=== PATIENT | female | born 1945 | race Caucasian/White ===

== ENCOUNTER 2016-09-07 11:08 | Inpatient (IN) | payer OTHER ==
[2016-09-07] MEDS ORDERED: ASPIRIN 81 MG (BABY) CHEWABLE TABLET PO ONE (11:28)
[2016-09-07] MEDS ORDERED: NORMAL SALINE 10 ML SYRINGE FLUSH IVP PRN (11:28)
[2016-09-07] MEDS ORDERED: Sodium Chloride 0.9% 1,000 ML PRIMARY IV ONE (11:28)
[2016-09-07] MEDS ORDERED: IPRATROPIUM/ALBUTEROL SULFATE 3 ML NEB NEB ONE (11:30)
--- NOTE | 2016-09-07 11:31 | EKG ---
[address] [place] [address] [place] [address] Measurements Intervals [place] Rate: 85 P: ND: 0 QRS: -31 QRSD: 106 T: 69 QT: 383 QTc: 425 Interpretive Statements SINUS RHYTHM WITH OCCASSIONAL PACs] VOLTAGE CRITERIA FOR LVH NONSPECIFIC ST & T-WAVE ABNORMALITY Compared to ECG 07/08/2016 11:52:09 Left ventricular hypertrophy now present T-wave abnormality now present Poor R-wave progression still present Electronically Signed On 09-07-16 15:53:35 MST by Rogelio Bro [email or web address]
[2016-09-07] MEDS: NITROGLYCERIN 0.4 MG SL TAB (BOTTLE OF 3) SL PRN ×3 (11:36→11:53)
[2016-09-07 11:49] LABS: BASOPHILS # (AUTO) 0.02 10*3/UL; BASOPHILS % (AUTO) 0.2 % (0-1); EOSINOPHILS % (AUTO) 0.7 % (0-8); HEMATOCRIT 41.6 % (37.0-47.0); HEMOGLOBIN 13.1 g/dL (12.0-16.0); IMM GRAN % (AUTO) 0.6 % (0-5); IMM GRAN# (AUTO) 0.06 10*3/UL; LYMPHOCYTES # (AUTO) 1.17 10*3/uL; LYMPHOCYTES % (AUTO) 12.3 % (10-50); MEAN CORPUSCULAR HEMOGLOBIN 26.7 PG (27-31); MEAN CORPUSCULAR HGB CONC 31.5 g/dL (33-37); MEAN PLATELET VOLUME 9.1 FL (7.4-12.2); MONOCYTES # (AUTO) 0.67 10*3/UL (0.3-0.8); NEUTROPHILS # (AUTO) 7.56 10*3/UL; NEUTROPHILS % (AUTO) 79.2 % (50-80); RDW COEFFICIENT OF VARIATION 17.7 % (11.5-14.5); WHITE BLOOD COUNT 9.55 10^3/uL (4.8-10.8)
[2016-09-07 11:54] LABS: PLATELET MORPHOLOGY COMMENT NORMAL MORPHOLOGY (NORM)
[2016-09-07 12:06] LABS: BILIRUBIN,TOTAL 0.7 mg/dL (0.3-1.2); BUN/CREATININE RATIO 15.38 (6-20); CALCIUM 9.7 mg/dL (8.7-10.7); CREATININE 1.3 mg/dL (0.50-1.20); POTASSIUM 3.2 meq/L (3.8-5.2); TOTAL PROTEIN 7.5 g/dL (6.1-8.0)
[2016-09-07 12:17] LABS: CREATINE KINASE MB 0.47 NG/DL (0.00-5.00)
[2016-09-07 12:21] LABS: TROPONIN I 0.018 ng/mL (< 0.040)
--- NOTE | 2016-09-07 12:59 | DI ---
HISTORY: Cough for 3 days. Nonradiating substernal chest pain since this morning. History of bronc hitis, pneumonia and right-sided heart failure. COMPARISON: 07/08/2016. FINDINGS: Mild cardiomegaly is noted with atheromatous changes of the dorsal aorta. Compared to the previous examination of 07/08/2016, there is pulmonary vascular congestion in both mid and lower claribel g davis with early interstitial infiltrates in both lung bases suggestive of early congestive heart failure. The remainder of the lung davis are essentially clear. IMPRESSION: 1. Mild cardiomegaly is noted with atheromatous changes of the dorsal aorta. 2. Evidence of pulmonary vascular congestion in both mid and lower lung davis with early interstitia l infiltrates in both lung bases suggestive of early congestive heart failure. Clinical correlation is requested.
[2016-09-07] MEDS ORDERED: ACETAMINOPHEN WITH CODEINE 300 MG/30 MG TABLET PO PRN (13:54)
[2016-09-07] MEDS ORDERED: CYANOCOBALAMIN 1000 MCG/1 ML VIAL SUBCUT SCH (13:54)
[2016-09-07] MEDS ORDERED: CYCLOBENZAPRINE 10 MG TABLET PO PRN (13:54)
[2016-09-07] MEDS ORDERED: ALBUTEROL SULFATE 2.5 MG/3 ML NEB PRN (13:54)
[2016-09-07] MEDS: IPRATROPIUM/ALBUTEROL SULFATE 3 ML NEB NEB SCH ×2 (14:39→18:52)
[2016-09-07] MEDS: methylPREDNISolone 125 MG/2 ML VIAL IVP SCH ×2 (14:42→21:27)
--- NOTE | 2016-09-07 16:22 | PDOC ---
Chest Pain HPI - General Chief Complaint: Respiratory Complaint Stated Complaint: shortness of breath; chest pain Date Seen by Provider: 09/07/16 Time Seen by Provider: 11:18 Source: Patient Exam Limitations: POSITIVE: No limitations Treatment Prior to Arrival: REPORTS: Oxygen Nurse's Notes Reviewed & Considered: Yes - History of Present Illness Initial Comments: The patient is a 70 year old female. She states that around 7 AM, shortly after getting out of bed, she developed subxiphoid chest pain, exacerbated by deep inspiration. She also complained of increased shortness of breath and cough for the past 3 days. No known fevers. Patient states she has a history of "restrictive lung disease"and is on oxygen continuously, 2 L/m when sedentary and 4 liters per minute with walking or with activity. She also states she has a history of congestive heart failure. No known previous history of myocardial infarction. Body Location Affected: REPORTS: Chest Timing: REPORTS: Constant Duration: 4-6 hours (Chest pain as above) Severity: Moderate Persistent/Worse since (date): 09/07/16 Persistent/Worse since (time): 07:00 Context: REPORTS: Activity Quality: REPORTS: Sharpness, Other (Pleuritic) Radiation: REPORTS: None Associated Symptoms: REPORTS: Hurts to Breathe, Productive Cough (sputum) ( Mucoid) Modifying Factors: improves with: None Reported Similar Symptoms Previously: No Recently seen/treated/hospitalized: No Any Prior Injuries Related to Current Complaint?: No - Patient Home Medications Home Medications: Home Medications Aspirin [Aspirin EC] 81 mg PO DAILY #100 tab 09/17/13 Cholecalciferol (Vitamin D3) [Vitamin D3] 1 tab PO QD tab 04/21/15 Docusate Sodium [Stool Softener] 1 cap PO DAILY cap 04/21/15 Psyllium Husk [Fiber] 1 cap PO QD cap 04/21/15 JPM-Cyanocobalamin [JPM - Vitamin B-12] 1,000 mcg SUBCUT 2 x wk ml 10/06/15 Folic Acid 1 tab PO DAILY tab 02/07/16 Albuterol Sulfate [Proair Hfa] 1 - 2 puff INH Q4-6H PRN #1 puff 02/16/16 Cyclobenzaprine HCl 10 mg PO TID PRN 04/19/16 Fluticasone/Salmeterol [Advair 250-50 Diskus] Sample #2 05/01/16 Oxygen (O2) 1 l NASAL DAILY #2 unit 05/17/16 Fluoxetine HCl [Prozac] 1 cap PO DAILY #30 cap 07/03/16 Clotrimazole/Betamethasone Dip [Clotrimazole-Betamethasone Crm] 1 applic TOPICAL BID #45 gm 07/10/16 Lorazepam [Ativan] 0.5 mg PO BID PRN #20 tab 07/13/16 Nystatin Powder [Mycostatin Powder] 15 applic TOPICAL BID #1 bottle 07/13/16 Esomeprazole Magnesium [Nexium 24hr] 1 cap PO BID cap 07/23/16 Furosemide [Lasix] 2 tab PO BID #120 tab 07/23/16 Lift Chair unit MC QD #1 07/23/16 Tramadol HCl 1 tab PO Q4-6H tab 07/23/16 Diltiazem HCl [Diltiazem 24hr Er] 180 mg PO DAILY #30 cap 08/10/16 Potassium Chloride 1 cap PO BID #60 cap 08/10/16 Acetaminophen with Codeine [Tylenol With Codeine #3 Tablet] 1 tab PO Q4-6H #90 tab 08/30/16 Nitrofurantoin Monohyd/M-Cryst [Macrobid 100 Mg Capsule] 100 mg PO DAILY #30 cap 08/30/16 - Patient Allergies Allergies/Adverse Reactions: Allergies Allergy/AdvReac Type Severity Reaction Status Date / Time Sulfa (Sulfonamide Allergy Mild VOMITING Verified 09/07/16 14:19 Antibiotics) ciprofloxacin HCl AdvReac Intermediate NOT Verified 09/07/16 14:19 [From Cipro] APPLICABLE Past Medical History - heen HEENT History: Cataracts, Hard of Hearing Cardiovascular History: Previous SD Respiratory History: Home Oxygen Use, Other (please comment) Additional Respiratory History: HAD PERTUSSIS ONE YEAR AGO, DIRECTIONAL BORE OPERATOR TOLD HER SHE HAD RESTRICTIVE LUNG DISEASE Gastrointestinal History: GERD Genitourinary History: Recurrent UTI Additional Genitourinary History: TAKES MACROBID DAILY FOR PREVENTION Endocrine History: Denies History Musculoskeletal History: Rheumatoid Arthritis, Fibromyalgia, Back Pain, Joint Pain, Osteoarthritis Prosthesis or Implant: No Neurological History: Denies History Blood Disorders: Denies History Psychiatric History: Depression History of Sexually Transmitted Diseases: No Cancer History: Denies History In Past Year Been Physically Harmed or Verbally Threatened: No History of MDRO: No History of Other Communicable Diseases: No Tobacco Use: Never Smoker Alcohol Use: Occasionally Substance Use Type: None Previous Surgical History: Yes Type / Date of Surgery: TONSILECTOMY, CHOLECYSTECTOMY, TOTAL HYST, GERD, REBECCA ROTATOR CUFF, APPY Anesthesia Reactions: No Significant Family History: No pertinent family hx Past Medical History Reviewed: Reviewed - No Changes ROS - Limitations ROS Limitations: No Limitations Constitution: REPORTS: Denies Symptoms Cardiovascular: REPORTS: Chest Pain Respiratory: REPORTS: Cough Productive, Hurts To Breathe, Shortness Of Breath Neurological: REPORTS: Denies Neuro Symptoms Gastrointestinal: REPORTS: Denies GI Symptoms Endocrine: REPORTS: Denies Symptoms Musculoskeletal: REPORTS: Denies MS Symptoms Genitourinary: REPORTS: Denies Symptoms Eyes: REPORTS: Denies Symptoms ENT: REPORTS: Denies Symptoms Skin: REPORTS: Denies Skin Symptoms Lympathic: REPORTS: Denies Lympathic Symptoms Immunologic: POSITIVE: Denies Symptoms Psychiatric: POSITIVE: Denies Psych Symptoms Chest Pain PE - General Appearance General Appearance: REPORTS: Alert, Cooperative, No Acute Distress, No Evidence of Trauma - HEENT HEENT: POSITIVE: Head Inspection Nml, Eyes Inspection Nml, Ears Inspection Nml, Nose Inspection Nml, Oral/Dental Inspect. Nml, Pharynx Inspect. Nml, PERRL, EOMI - Neck Neck: REPORTS: Normal Inspection, No Carotid Bruit - Respiratory Respiratory: REPORTS: Rhonchi - Cardiovascular Cardiovascular: REPORTS: Regular Rate and Rhythm, Heart Sounds Normal, Equal Pulses, Strong Pulses, No Murmur, No Gallop, No Friction Rub, No JVD Peripheral Pulses: Radial (R): 2+, Radial (L): 2+ - Abdomen Abdomen: Soft: (All Quadrants), Normal Bowel Sounds: (All Quadrants), Denies Tenderness: (All Quadrants), No Splenomegaly: (All Quadrants), No Hepatomegaly: (All Quadrants), No Guarding: (All Quadrants), No Rebound: (All Quadrants), No Palpable Pulse: (All Quadrants), No Palpabale Mass: (All Quadrants), No Distention: (All Quadrants), No Rigidity: (All Quadrants) - Skin Skin: REPORTS: Intact, Normal For Race, Warm, Dry, No Rash - Extremities Extremity: Non-Tender: (All Extremities), Normal ROM: (All Extremities), Normal Inspection: (All Extremities) - Neurological / Psychological Neurological: POSITIVE: Oriented X3, plant tech Normal As Tested, Motor Normal, Sensation Normal, 5, 6 Chest Pain Progress - Results Reviewed by me Xrays/CTs/US Reviewed by me: Yes Discussed with Radiologist: Yes Radiology Findings: Normal by my interpretation; radiologist interpretation is mild cardiomegaly and pulmonary vascular congestion in both mid and lower lung davis with early interstitial infiltrates in both lung bases suggestive of early congestive heart failure. Lab Results Reviewed: Yes (d-dimer 0.89; BNP 235) Lab Results:: Laboratory Results 09/07/16 Range/Units 11:46 WBC 9.55 (4.8-10.8) 10^3/uL RBC 4.90 (4.20-5.40) 10^6/uL Hgb 13.1 (12.0-16.0) g/dL Hct 41.6 (37.0-47.0) % MCV 84.9 (81-99) FL MCH 26.7 L (27-31) PG MCHC 31.5 L (33-37) g/dL RDW Std Deviation 54.2 H (39-50) fL RDW Coeff of Alo 17.7 H (11.5-14.5) % Plt Count 364 H (140-350) 10*3/uL MPV 9.1 (7.4-12.2) FL Immature Gran % (Auto) 0.6 (0-5) % Neut % (Auto) 79.2 (50-80) % Lymph % (Auto) 12.3 (10-50) % Bryan % (Auto) 7.0 (5-15) % Eos % (Auto) 0.7 (0-8) % Baso % (Auto) 0.2 (0-1) % Immature Gran # (Auto) 0.06 10*3/UL Neut # (Auto) 7.56 10*3/UL Lymph # (Auto) 1.17 10*3/uL Bryan # (Auto) 0.67 (0.3-0.8) 10*3/UL Eos # (Auto) 0.07 10*3/UL Baso # (Auto) 0.02 10*3/UL WBC Morphology Comment Normal morphology (NORM) Plt Morphology Comment Normal morphology (NORM) RBC Morph Comment Normal morphology (NORM) D-Dimer 0.89 H (0.00-0.59) mg/L Sodium 136 (135-145) meq/L Potassium 3.2 L (3.8-5.2) meq/L Chloride 92 L (98-112) meq/L Carbon Dioxide 32 (23-33) meq/L Anion Gap 12 (5-20) BUN 20 (7-22) mg/dL Creatinine 1.3 H (0.50-1.20) mg/dL Estimated GFR 41 (>60 ml/min/1.73m(2)) BUN/Creatinine Ratio 15.38 (6-20) Glucose 108 (78-110) mg/dL Calculated Osmolality 285.0 (267-292) mOsm/kg Calcium 9.7 (8.7-10.7) mg/dL Total Bilirubin 0.7 (0.3-1.2) mg/dL AST 24 (8-39) IU/L ALT 27 (9-52) IU/L Alkaline Phosphatase 104 (38-126) IU/L CK-MB (CK-2) 0.47 (0.00-5.00) NG/DL Troponin I 0.018 (< 0.040) ng/mL NT-Pro-B Natriuret Pep 235 H (0-125) PG/ML Total Protein 7.5 (6.1-8.0) g/dL Albumin 4.0 (3.5-4.8) g/dL Globulin 3.5 (2.50-4.10) g/dL Albumin/Globulin Ratio 1.10 L (1.3-2.0) mg/g EKG Interpreted/Reviewed By Me:: Yes (occasional PAC; poor R-wave progression anteriorly) EKG Interpretation:: POSITIVE: Normal Sinus Rhythm, Normal Rate, Normal Intervals, Normal ST/T. NEGATIVE: Normal [place] (Leftward axis), Normal QRS ( Poor R-wave progression anterior leads) - Patient's Progress Pain Medication Addressed: POSITIVE: Yes (Patient given nitroglycerin sublingual without any definite effect) School/Work Release Addressed: POSITIVE: Not Applicable Re-Examine Time: 13:00 Re-Examine Comment: Patient states she feels somewhat better after DuoNeb nebulizer treatments. Patient had an oxygen saturation of 84% on 4 L on arrival ; on discharge it was 94% on 4 L. She states she feels less short of breath. CTA chest ordered due to her elevated d-dimer; however due to her creatinine of 1.3 this was not done. Ventilation perfusion scan was ordered, but this will not be available until 4 PM today. Status: POSITIVE: Improved, Re-Examined Quality Measure Initiative: CP/AMI: POSITIVE: EKG, ASA - Consult Consult (If Yes, Name of Consulting MD & Time Called): Yes (Dr. Long, hospitalist, [id number]) Consulting MD will see pt:: POSITIVE: [facility] Admit Counseled: POSITIVE: Patient, Family, RE: Lab Results, RE: Radiology Results, RE : DX, RE: Need for F/U Patient Care Time - Estimated PCT Patient Care Time (In Minutes): 50 Vital Signs - Recent Vital Signs Vital Signs: Vital Signs (Last 8 hours) Temp Pulse Resp BP Pulse Ox 09/07/16 11:23 97.8 F 80 20 142/94 84 - VS Reviewed Vital Signs Reviewed: Yes Discharge Clinical Impression: Restrictive lung disease, Hypoxia, Chest pain Discharge Disposition: Admit to Inpatient Condition: Fair Date Decision to Admit to Inpatient: 09/07/16 Time Decision to Admit to Inpatient: 13:10
[2016-09-07] MEDS: Esomeprazole DR 20mg Capsule PO SCH (17:16)
--- NOTE | 2016-09-07 17:39 | DI ---
HISTORY: Chest pain, shortness of breath, hypoxia. TECHNIQUE: Contiguous axial images of the chest were obtained and submitted for interpretation. FINDINGS: CT imaging reveals no evidence of acute pulmonary emboli, and no dissection is apparent. The heart is enlarged. Prominent epicardial fat is noted. There is no evidence of a pericardial eff usion. A pattern consistent with pulmonary edema is noted. No significant pleural effusion is noted . IMPRESSION: 1. No CT evidence of pulmonary emboli or aortic dissection. 2. Cardiomegaly; prominent epicardial fat. 3. Pulmonary edema.
[2016-09-07] MEDS ORDERED: FUROSEMIDE 10 MG/1 ML - 10 ML IVP ONE ×2 (18:03→19:15)
[2016-09-07] MEDS: FLUTICASONE/SALMETEROL 250/50 UD INHALER INH SCH (18:51)
[2016-09-07] MEDS ORDERED: POTASSIUM CHLORIDE 20 MEQ TAB PO ONE ×2 (18:56→19:45)
[2016-09-07] MEDS: NORMAL SALINE 10 ML SYRINGE FLUSH IVP PRN ×2 (19:10→21:27)
--- NOTE | 2016-09-07 19:10 | PDOC ---
History and Physical - History of Present Illness Date and Time of Service: 09/07/2016, 1905 Chief Complaint: Shortness of breath History of Present Illness: This very pleasant 70-year-old female that we recently had admitted in early July 2016 with restrictive lung disease, reportedly rheumatoid arthritis although she did not seem to have clinical features consistent with rheumatoid arthritis, obesity, depression, amongst other issues. She came in today stating that she's had shortness of breath, worsening over the last 3 days. Since her hospital stay in July, she has diuresed and lost over 50 pounds. She states that her oxygen went from 4-6 L down to 2 L daily. She has not seen a financial planning adviser and canceled her appointment with her prior one. Her shortness of breath over the past few days has been quite severe, she's noticed that her oxygen saturation has dropped as low as 40-50% at times with home oximeter monitor. She denies any fever, chills, nausea or vomiting. This morning she had some onset of chest pain and called the clinic and they told her that she probably needed a chest x-ray and refer to the hospital. Her chest pain is completely resolved by the time I saw her and her initial troponin and EKG were negative. Her chest x-ray looked consistent with pulmonary edema as does a CT scan that I ordered to look for pulmonary emboli. She's had shortness of breath that she be due to this restrictive lung disease, but again I do not have pulmonary function tests to review at this time. An echocardiogram was done in July and it was noted that the ejection fraction was probably normal at 60-65%. No diastolic dysfunction was reported. My partner, Dr. Nettles, felt that the patient might have had some sort of scleroderma variant. There were no exacerbating factors, the patient was admitted here for further evaluation. Past Medical History Medical History: 1. Restrictive lung disease, I'm not sure of the underlying etiology. Scleroderma would be in the differential. 2. Vasospasm with tortuous coronary artery by history. I do not have a catheter report to review. 3. Obesity. 4. Depression. 5. Possible sleep apnea. Surgical History: Appendectomy. Billateral Oophorectomy (1996). Bladder surgery. Foot surgery (2008). Hysterectomy. Lymphectomy. Arthroscopic Shoulder Surgery (x 2) Pertinent Family History: Significant for leukemia in her father, ovarian cancer in her mother and apparently an eating disorder in her mother Past Social History: Does not smoke or drink. Worked as a childcare aide. . Has 2 daughters, one of whom is mentally disabled and who lives with the patient. Lives in [place], [place]. Tobacco Use: Never Smoker Substance Use Type: None Alcohol Use: None Medication / Allergies Home Medications: Home Medications Medication Instructions Recorded Confirmed Type Aspirin [Aspirin EC] 81 mg PO DAILY #100 tab 09/17/13 09/07/16 Clinic Cholecalciferol (Vitamin D3) 1 tab PO QD tab 04/21/15 09/07/16 History [Vitamin D3] Docusate Sodium [Stool Softener] 1 cap PO DAILY cap 04/21/15 09/07/16 History Psyllium Husk [Fiber] 1 cap PO QD cap 04/21/15 09/07/16 History JPM-Cyanocobalamin [JPM - Vitamin 1,000 mcg SUBCUT 2 x wk ml 10/06/15 09/07/16 History B-12] Folic Acid 1 tab PO DAILY tab 02/07/16 09/07/16 History Albuterol Sulfate [Proair Hfa] 1 - 2 puff INH Q4-6H PRN #1 puff 02/16/16 Clinic Cyclobenzaprine HCl 10 mg PO TID PRN 04/19/16 09/07/16 History Fluticasone/Salmeterol [Advair #2 05/01/16 Clinic 250-50 Diskus] Sample Oxygen (O2) 1 l NASAL DAILY #2 unit 05/17/16 09/07/16 Clinic Fluoxetine HCl [Prozac] 1 cap PO DAILY #30 cap 07/03/16 09/07/16 Clinic Clotrimazole/Betamethasone Dip 1 applic TOPICAL BID #45 gm 07/10/16 09/07/16 Clinic [Clotrimazole-Betamethasone Crm] Lorazepam [Ativan] 0.5 mg PO BID PRN #20 tab 07/13/16 09/07/16 Rx Nystatin Powder [Mycostatin Powder] 15 applic TOPICAL BID #1 bottle 07/13/1610/19 Rx Esomeprazole Magnesium [Nexium 1 cap PO BID cap 07/23/16 09/07/16 History 24hr] Furosemide [Lasix] 2 tab PO BID #120 tab 07/23/16 09/07/16 Clinic Lift Chair unit MC QD #1 07/23/16 Clinic Tramadol HCl 1 tab PO Q4-6H tab 07/23/16 09/07/16 History Diltiazem HCl [Diltiazem 24hr Er] 180 mg PO DAILY #30 cap 08/10/16 09/07/16 Clinic Potassium Chloride 1 cap PO BID #60 cap 08/10/16 09/07/16 Clinic Acetaminophen with Codeine 1 tab PO Q4-6H #90 tab 08/30/16 09/07/16 Clinic [Tylenol With Codeine #3 Tablet] Nitrofurantoin Monohyd/M-Cryst 100 mg PO DAILY #30 cap 08/30/16 09/07/16 Clinic [Macrobid 100 Mg Capsule] Allergies/Adverse Reactions: Allergies Allergy/AdvReac Type Severity Reaction Status Date / Time Sulfa (Sulfonamide Allergy Mild VOMITING Verified 09/07/16 14:19 Antibiotics) ciprofloxacin HCl AdvReac Intermediate NOT Verified 09/07/16 14:19 [From Cipro] APPLICABLE Review of Systems - Review of Systems All Systems: Reviewed & No Additional Complaints Except as Stated (I did a 12 point review of systems and it was negative other than that discussed in history of present illness and that noted below.) - Respiratory Respiratory: REPORTS: Dyspnea with Exertion - Cardiovascular Cardiovascular: REPORTS: Chest Pain (Was short-lived, around the xiphoid process , and has not returned. Resolves spontaneously.) Exam - Vitals Vital Signs: Vital Signs Temperature 98.2 F Temperature Source Oral Pulse Rate [Apical] 80 Pulse Rate [Pulse Oximeter] 75 Respiratory Rate 20 Blood Pressure [Left Arm] 133/70 Pulse Ox 93 Oxygen Flow Rate 5 Oxygen Delivery Method Nasal Cannula Height 5 ft 3 in Weight 223 lb 2 oz - General General Appearance: POSITIVE: No Acute Distress, Cooperative - Head Head Exam: POSITIVE: Normal Inspection, Normocephalic, Atraumatic - Eye Eye Exam: POSITIVE: No Scleral Icterus - ENT ENT Exam: POSITIVE: Mucous Membranes Moist - Neck Neck Exam: POSITIVE: Normal Inspection, No Tenderness, No Thyromegaly - Respiratory Respiratory Exam: POSITIVE: Breathing Non Labored, Coarse Breath Sounds - Cardiovascular Cardiovascular Exam: POSITIVE: RRR, No Murmur, No Clicks, No Gallops, No Rubs, No JVD - GI/Abdominal GI/Abdominal Exam: POSITIVE: Normal Bowel Sounds, Non Tender, Non Distended, Soft - Rectal Rectal Exam: POSITIVE: Deferred - External Exam: POSITIVE: Deferred Exam: POSITIVE: Deferred - Extremities Extremities Exam: POSITIVE: No Clubbing Present, No Edema Present, No Cyanosis Present - Back Back Exam: POSITIVE: Normal Inspection, No CVA Tenderness - Neurological Neurological Exam: POSITIVE: Alert, Oriented x 3, No Facial Droop, Speech Intact / Clear, Moves All Extremities Equally - Psychiatric Psychiatric Exam: POSITIVE: Normal Affect, Normal Mood - Integumentary Integumentary Exam: POSITIVE: Normal Color, Warm, Dry, Intact Results - Labs CBC and BMP: 09/07/16 11:46 09/07/16 11:46 Labs - Last 24 Hours: Laboratory Results 09/07/16 Range/Units 11:46 WBC 9.55 (4.8-10.8) 10^3/uL RBC 4.90 (4.20-5.40) 10^6/uL Hgb 13.1 (12.0-16.0) g/dL Hct 41.6 (37.0-47.0) % MCV 84.9 (81-99) FL MCH 26.7 L (27-31) PG MCHC 31.5 L (33-37) g/dL RDW Std Deviation 54.2 H (39-50) fL RDW Coeff of Alo 17.7 H (11.5-14.5) % Plt Count 364 H (140-350) 10*3/uL MPV 9.1 (7.4-12.2) FL Immature Gran % (Auto) 0.6 (0-5) % Neut % (Auto) 79.2 (50-80) % Lymph % (Auto) 12.3 (10-50) % [place] % (Auto) 7.0 (5-15) % Eos % (Auto) 0.7 (0-8) % Baso % (Auto) 0.2 (0-1) % Immature Gran # (Auto) 0.06 10*3/UL Neut # (Auto) 7.56 10*3/UL Lymph # (Auto) 1.17 10*3/uL [place] # (Auto) 0.67 (0.3-0.8) 10*3/UL Eos # (Auto) 0.07 10*3/UL Baso # (Auto) 0.02 10*3/UL WBC Morphology Comment Normal morphology (NORM) Plt Morphology Comment Normal morphology (NORM) RBC Morph Comment Normal morphology (NORM) D-Dimer 0.89 H (0.00-0.59) mg/L Sodium 136 (135-145) meq/L Potassium 3.2 L (3.8-5.2) meq/L Chloride 92 L (98-112) meq/L Carbon Dioxide 32 (23-33) meq/L Anion Gap 12 (5-20) BUN 20 (7-22) mg/dL Creatinine 1.3 H (0.50-1.20) mg/dL Estimated GFR 41 (>60 ml/min/1.73m(2)) BUN/Creatinine Ratio 15.38 (6-20) Glucose 108 (78-110) mg/dL Calculated Osmolality 285.0 (267-292) mOsm/kg Calcium 9.7 (8.7-10.7) mg/dL Total Bilirubin 0.7 (0.3-1.2) mg/dL AST 24 (8-39) IU/L ALT 27 (9-52) IU/L Alkaline Phosphatase 104 (38-126) IU/L CK-MB (CK-2) 0.47 (0.00-5.00) NG/DL Troponin I 0.018 (< 0.040) ng/mL NT-Pro-B Natriuret Pep 235 H (0-125) PG/ML Total Protein 7.5 (6.1-8.0) g/dL Albumin 4.0 (3.5-4.8) g/dL Globulin 3.5 (2.50-4.10) g/dL Albumin/Globulin Ratio 1.10 L (1.3-2.0) mg/g - EKG Data -: EKG Interpreted by Me Rate: Normal EKG Shows Normal: Sinus Rhythm - Imaging Status: Image Reviewed by Me (The chest x-ray, on my view, appears consistent with possible increased pulmonary vascular congestion. CT scan of the chest for pulmonary embolism, negative for pulmonary and was him, but on my view has edema present.) Assessment and Plan - Patient Problems (1) Acute on chronic respiratory failure with hypoxemia Current Visit: Yes Status: Acute (2) Pulmonary edema Current Visit: Yes Status: Acute Qualifiers: Chronicity: acute Qualified Description: Acute pulmonary edema Qualifier Code(s): (J81.0) Acute pulmonary edema (3) Chest pain Current Visit: Yes Status: Acute Qualifiers: Chest pain type: other chest pain Qualified Description: Other chest pain Qualifier Code(s): (R07.89) Other chest pain, (R07.8) Other chest pain (4) Restrictive lung disease Current Visit: Yes Status: Acute (5) Limited scleroderma Current Visit: Yes Status: Acute (6) Depression with anxiety Current Visit: Yes Status: Acute - Assessment / Plan Additional Assessment/Plan Details: Admit the patient. Given the findings on the CT scan, trial dose of Lasix. Overall, I think she needs further evaluation by rod buster helper and probably cardiology service. Start Lasix IV Initiate blood workup for scleroderma. Oxygen as necessary. Replace potassium. Check labs tomorrow.
[2016-09-07 19:45] LABS: ABG PH 7.49 (7.35-7.45); COLLECTION SITE R Brachial
[2016-09-07 19:46] LABS: ABG BASE EXCESS 4 MMOL/L (-2-2); ABG HCO3 27.7 (22-26); ABG OXYGEN SATURATION 98 % (90-100); ABG TCO2 29 MMOL/L (23-27); ALLEN TEST yes; FIO2/O2 5L NC
[2016-09-07] MEDS ORDERED: FUROSEMIDE 40 MG TABLET PO SCH (21:00)
[2016-09-07] MEDS ORDERED: PSYLLIUM SEED 1 EACH PACKET PO SCH ×2 (21:00)
[2016-09-07] MEDS ORDERED: DOCUSATE 100 MG CAPSULE PO SCH (21:00)
[2016-09-07] MEDS: NYSTATIN 15 GM POWDER TOPICAL SCH ×2 (21:28→21:40)
[2016-09-07] MEDS: Potassium Chloride Tab 10 MEQ TAB PO SCH (21:28)
[2016-09-07] MEDS ORDERED: PSYLLIUM SEED 1 EACH PACKET PO ONE ×2 (22:05)
[2016-09-07] MEDS ORDERED: DOCUSATE 100 MG CAPSULE ONE (22:05)
[2016-09-07] MEDS: PSYLLIUM SEED 1 EACH PACKET PO SCH ×2 (22:08)
[2016-09-07] MEDS: DOCUSATE 100 MG CAPSULE PO SCH (22:08)
[2016-09-07] MEDS ORDERED: Zolpidem Tab 5 MG TAB PO PRN (22:19)
[2016-09-07] MEDS ORDERED: Zolpidem Tab 5 MG TAB PO ONE (22:47)
[2016-09-08] MEDS: LORazepam 1 MG TABLET PO PRN ×2 (00:27→14:11)
[2016-09-08] MEDS: NORMAL SALINE 10 ML SYRINGE FLUSH IVP PRN ×2 (03:49→09:04)
[2016-09-08] MEDS: methylPREDNISolone 125 MG/2 ML VIAL IVP SCH ×2 (03:49→09:04)
[2016-09-08] MEDS: IPRATROPIUM/ALBUTEROL SULFATE 3 ML NEB NEB SCH ×2 (06:13→10:30)
[2016-09-08] MEDS: FLUTICASONE/SALMETEROL 250/50 UD INHALER INH SCH (06:14)
[2016-09-08 06:18] LABS: BASOPHILS # (AUTO) 0 10*3/UL; BASOPHILS % (AUTO) 0 % (0-1); EOSINOPHILS % (AUTO) 0 % (0-8); HEMATOCRIT 38.9 % (37.0-47.0); HEMOGLOBIN 12.4 g/dL (12.0-16.0); IMM GRAN % (AUTO) 0.7 % (0-5); IMM GRAN# (AUTO) 0.05 10*3/UL; LYMPHOCYTES # (AUTO) 0.69 10*3/uL; LYMPHOCYTES % (AUTO) 9.7 % (10-50); MEAN CORPUSCULAR HGB CONC 31.9 g/dL (33-37); MEAN PLATELET VOLUME 9.5 FL (7.4-12.2); MONOCYTES # (AUTO) 0.13 10*3/UL (0.3-0.8); MONOCYTES % (AUTO) 1.8 % (5-15); NEUTROPHILS # (AUTO) 6.28 10*3/UL; NEUTROPHILS % (AUTO) 87.8 % (50-80); RDW COEFFICIENT OF VARIATION 17.7 % (11.5-14.5); RED BLOOD COUNT 4.59 10^6/uL (4.20-5.40); WHITE BLOOD COUNT 7.15 10^3/uL (4.8-10.8)
[2016-09-08 06:34] LABS: BUN/CREATININE RATIO 20.83 (6-20); CALCIUM 9.7 mg/dL (8.7-10.7); CREATININE 1.2 mg/dL (0.50-1.20); POTASSIUM 4.1 meq/L (3.8-5.2)
[2016-09-08 06:46] LABS: PLATELET MORPHOLOGY COMMENT NORMAL MORPHOLOGY (NORM)
[2016-09-08] MEDS: Esomeprazole DR 20mg Capsule PO SCH (08:26)
[2016-09-08] MEDS ORDERED: PSYLLIUM SEED 1 EACH PACKET PO ONE ×2 (08:50)
[2016-09-08] MEDS ORDERED: FOLIC ACID 1 MG TABLET PO SCH (09:00)
[2016-09-08] MEDS ORDERED: DOXYCYCLINE HYCLATE 100 MG CAPSULE PO SCH (09:00)
[2016-09-08] MEDS ORDERED: ENOXAPARIN SODIUM 40 MG/0.4 ML SYRINGE SUBCUT SCH (09:00)
[2016-09-08] MEDS ORDERED: ASPIRIN EC 81 MG TABLET PO SCH (09:00)
[2016-09-08] MEDS ORDERED: DILTIAZEM CD 180 MG CAP PO SCH (09:00)
[2016-09-08] MEDS ORDERED: FLUoxetine 20 MG CAPSULE PO SCH (09:00)
[2016-09-08] MEDS ORDERED: DOCUSATE 100 MG CAPSULE PO SCH (09:00)
[2016-09-08] MEDS: DOCUSATE 100 MG CAPSULE PO SCH (09:03)
[2016-09-08] MEDS: Potassium Chloride Tab 10 MEQ TAB PO SCH (09:04)
[2016-09-08] MEDS: PSYLLIUM SEED 1 EACH PACKET PO SCH ×2 (09:05)
[2016-09-08] MEDS: NYSTATIN 15 GM POWDER TOPICAL SCH (09:05)
[2016-09-08 12:41] VITALS: RESP 20; TEMP 97.6
--- NOTE | 2016-09-08 13:36 | DCSUMMARY ---
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 This has all happened within the last 3 months. The patient came in with 3 day history of shortness of breath and low oxygen saturations and she was requiring 6 L of oxygen to maintain her oxygen saturations. She had already lost 57 pounds after stopping methotrexate and steroids for presumed diagnosis of rheumatoid arthritis. Her workup in the past is consistent with scleroderma. I did further studies including antibody studies that are all pending at this time, but the patient came in with pulmonary edema picture consistent with congestive heart failure. Her BNP however was not overly elevated. I think she has probably moderate to severe pulmonary hypertension in the setting of scleroderma, she has dysmotility symptoms, and she has skin symptoms consistent with this diagnosis. I think she would benefit from a right heart catheterization and ultimately cardiology and pulmonology consultation to help manage medications for pulmonary hypertension. After some more aggressive diuresis today, the patient does feel less short of breath and she is on 4 L per nasal cannula. On exam she still has a cardiac wheeze. She denies any chest pains and denies any nausea or vomiting. I look for other causes of pulmonary hypertension as well and did a CT scan to rule out pulmonary emboli which was negative. In addition, I checked for flu when she did not have that, and she ruled out for myocardial infarction. Given this constellation of findings, and her severe pulmonary hypertension symptoms and presentation, I spoke with Dr. Denis, and he agreed to accept the patient and we will transfer her today for right heart catheterization. Assessment and Plan: 1. As per discharge assessments noted 2. Disposition: Patient is discharged in ambulance to [facility]. 3. Condition on discharge, stable and improved. 4. Diet: regular diet 5. Activities: resume normal activities/as per [facility] 6. Follow-Up: 1. We'll arrange a follow-up appointment with Dr. Dash. 2. 7. Medications at the Time of Discharge: Active Medications Generic Name Dose Route Start Last Admin Trade Name Freq PRN Reason Stop Dose Admin Acetaminophen/Codeine Phosphate 1 tab 09/07/16 13:54 Tylenol With Codeine #3 Tablet PO Q4H PRN pain Albuterol Sulfate 2.5 mg 09/07/16 13:54 Albuterol Neb Soln 0.083% NEB Q1H PRN Shortness of Breath Albuterol/Ipratropium 3 ml 09/07/16 15:00 09/08/16 10:30 Duoneb Neb Soln NEB 3 ml RTQID ALLA Administration Aspirin 81 mg 09/08/16 09:00 09/08/16 09:03 Aspirin Ec PO 81 mg DAILY ALLA Administration Cyclobenzaprine HCl 10 mg 09/07/16 13:54 Flexeril PO TID PRN Muscle Cramps Diltiazem HCl 180 mg 09/08/16 09:00 09/08/16 09:03 Cardizem Cd PO 180 mg DAILY [facility] Administration Docusate Sodium 100 mg 09/07/16 21:15 09/08/16 09:03 Colace PO 100 mg BID ALLA Administration Doxycycline Hyclate 100 mg 09/08/16 09:00 09/08/16 09:03 Vibramycin PO 100 mg DAILY [facility] Administration Enoxaparin Sodium 40 mg 09/08/16 09:00 09/08/16 09:04 Lovenox Inj SUBCUT 40 mg DAILY [facility] Administration Esomeprazole Magnesium 20 mg 09/07/16 16:30 09/08/16 08:26 Nexium PO 20 mg AC BK DIN ALLA Administration Fluoxetine HCl 20 mg 09/08/16 09:00 09/08/16 09:04 Prozac PO 20 mg DAILY ALLA Administration Folic Acid 1 mg 09/08/16 09:00 09/08/16 09:04 Folic Acid PO 1 mg DAILY [facility] Administration Sodium Chloride 25 mls @ 200 mls/hr 09/07/16 13:54 Normal Saline 0.9% IV .Post Infusion PRN No Primary IV for Flush ONLY Lorazepam 0.5 mg 09/07/16 14:15 09/08/16 00:27 Ativan Tab PO 0.5 mg BID PRN Administration Anxiety Methylprednisolone Sodium Succinate 60 mg 09/07/16 13:54 09/08/16 09:04 Solu-Medrol Inj IVP 09/10/16 13:53 60 mg Q6H ALLA Administration Nystatin 15 applic 09/07/16 21:00 09/08/16 09:05 Mycostatin Powder TOPICAL Not Given BID [facility] Potassium Chloride 10 meq 09/07/16 21:00 09/08/16 09:04 Klor-Con PO 10 meq BID ALLA Administration Psyllium Hydrophilic Mucilloid 1 packet 09/07/16 21:15 09/08/16 09:05 Metamucil 3.4 Gm Packet PO 1 packet BID ALLA Administration Fluticasone/Salmeterol 1 puff 09/07/16 19:00 09/08/16 06:14 Advair Diskus 250/50 Inhaler INH 1 puff RTBID ALLA Administration Sodium Chloride 5 - 20 ml 09/07/16 13:54 09/08/16 09:04 Saline Flush IVP 10 ml BID PRN Administration Flush Zolpidem Tartrate 5 mg 09/07/16 22:19 09/07/16 22:43 Ambien PO 5 mg BEDTIME PRN Administration Insomnia 8. Time, care, counseling and coordination of care for this discharge is less than 30 minutes. Exam - Vitals Vital Signs: Vital Signs Temperature 97.6 F Temperature Source Temporal Artery Scan Pulse Rate [Apical] 70 Pulse Rate [Pulse Oximeter] 89 Respiratory Rate 20 Blood Pressure [Left Arm] 130/67 Pulse Ox 93 Oxygen Flow Rate 4 Oxygen Delivery Method Nasal Cannula Height 5 ft 3 in Weight 227 lb - General General Appearance: POSITIVE: No Acute Distress, Cooperative - Eye Eye Exam: POSITIVE: No Scleral Icterus - Respiratory Respiratory Exam: POSITIVE: Breathing Non Labored, Wheezes - Cardiovascular Cardiovascular Exam: POSITIVE: RRR, No Murmur, No Clicks, No Gallops, No Rubs, No JVD - GI/Abdominal GI/Abdominal Exam: POSITIVE: Normal Bowel Sounds, Non Tender, Non Distended, Soft - Extremities Extremities Exam: POSITIVE: No Clubbing Present, No Edema Present, No Cyanosis Present - Neurological Neurological Exam: POSITIVE: Alert, Oriented x 3, No Facial Droop, Speech Intact / Clear, Moves All Extremities Equally - Integumentary Additional Integumentary Exam Details: Bruising at sites of venipuncture for labs. Data Perinent Studies: Laboratory Results 09/07/16 09/07/16 09/07/16 Range/Units 11:46 19:11 21:23 WBC 9.55 (4.8-10.8) 10^3/uL RBC 4.90 (4.20-5.40) 10^6/uL Hgb 13.1 (12.0-16.0) g/dL Hct 41.6 (37.0-47.0) % MCV 84.9 (81-99) FL MCH 26.7 L (27-31) PG MCHC 31.5 L (33-37) g/dL RDW Std Deviation 54.2 H (39-50) fL RDW Coeff of Alo 17.7 H (11.5-14.5) % Plt Count 364 H (140-350) 10*3/uL MPV 9.1 (7.4-12.2) FL Immature Gran % (Auto) 0.6 (0-5) % Neut % (Auto) 79.2 (50-80) % Lymph % (Auto) 12.3 (10-50) % Slope % (Auto) 7.0 (5-15) % Eos % (Auto) 0.7 (0-8) % Baso % (Auto) 0.2 (0-1) % Immature Gran # (Auto) 0.06 10*3/UL Neut # (Auto) 7.56 10*3/UL Lymph # (Auto) 1.17 10*3/uL Slope # (Auto) 0.67 (0.3-0.8) 10*3/UL Eos # (Auto) 0.07 10*3/UL Baso # (Auto) 0.02 10*3/UL WBC Morphology Comment Normal morphology (NORM) Plt Morphology Comment Normal morphology (NORM) RBC Morph Comment Normal morphology (NORM) D-Dimer 0.89 H (0.00-0.59) mg/L ABG pH 7.49 H (7.35-7.45) ABG pCO2 35.9 (34-38) MMHG ABG pO2 95 H (65-75) MMHG ABG HCO3 27.7 H (22-26) ABG Total CO2 29 H (23-27) MMOL/L ABG O2 Saturation 98 (90-100) % ABG Base Excess 4 H (-2-2) MMOL/L Ko Test yes FiO2 5l nc Sodium 136 (135-145) meq/L Potassium 3.2 L (3.8-5.2) meq/L Chloride 92 L (98-112) meq/L Carbon Dioxide 32 (23-33) meq/L Anion Gap 12 (5-20) BUN 20 (7-22) mg/dL Creatinine 1.3 H (0.50-1.20) mg/dL Estimated GFR 41 (>60 ml/min/1.73m(2)) BUN/Creatinine Ratio 15.38 (6-20) Glucose 108 (78-110) mg/dL Calculated Osmolality 285.0 (267-292) mOsm/kg Calcium 9.7 (8.7-10.7) mg/dL Total Bilirubin 0.7 (0.3-1.2) mg/dL AST 24 (8-39) IU/L ALT 27 (9-52) IU/L Alkaline Phosphatase 104 (38-126) IU/L Total Creatine Kinase 25 L (30-136) IU/L CK-MB (CK-2) 0.47 (0.00-5.00) NG/DL Troponin I 0.018 0.016 (< 0.040) ng/mL NT-Pro-B Natriuret Pep 235 H (0-125) PG/ML Total Protein 7.5 (6.1-8.0) g/dL Albumin 4.0 (3.5-4.8) g/dL Globulin 3.5 (2.50-4.10) g/dL Albumin/Globulin Ratio 1.10 L (1.3-2.0) mg/g 09/08/16 09/08/16 Range/Units 06:09 06:53 WBC 7.15 (4.8-10.8) 10^3/uL RBC 4.59 (4.20-5.40) 10^6/uL Hgb 12.4 (12.0-16.0) g/dL Hct 38.9 (37.0-47.0) % MCV 84.7 (81-99) FL MCH 27.0 (27-31) PG MCHC 31.9 L (33-37) g/dL RDW Std Deviation 53.5 H (39-50) fL RDW Coeff of Alo 17.7 H (11.5-14.5) % Plt Count 347 (140-350) 10*3/uL MPV 9.5 (7.4-12.2) FL Immature Gran % (Auto) 0.7 (0-5) % Neut % (Auto) 87.8 H (50-80) % Lymph % (Auto) 9.7 L (10-50) % Slope % (Auto) 1.8 L (5-15) % Eos % (Auto) 0 (0-8) % Baso % (Auto) 0 (0-1) % Immature Gran # (Auto) 0.05 10*3/UL Neut # (Auto) 6.28 10*3/UL Lymph # (Auto) 0.69 10*3/uL Slope # (Auto) 0.13 L (0.3-0.8) 10*3/UL Eos # (Auto) 0 10*3/UL Baso # (Auto) 0 10*3/UL WBC Morphology Comment Normal morphology (NORM) Plt Morphology Comment Normal morphology (NORM) RBC Morph Comment Normal morphology (NORM) D-Dimer (0.00-0.59) mg/L ABG pH (7.35-7.45) ABG pCO2 (34-38) MMHG ABG pO2 (65-75) MMHG ABG HCO3 (22-26) ABG Total CO2 (23-27) MMOL/L ABG O2 Saturation (90-100) % ABG Base Excess (-2-2) MMOL/L Ko Test FiO2 Sodium 136 (135-145) meq/L Potassium 4.1 (3.8-5.2) meq/L Chloride 95 L (98-112) meq/L Carbon Dioxide 25 (23-33) meq/L Anion Gap 16 (5-20) BUN 25 H (7-22) mg/dL Creatinine 1.2 (0.50-1.20) mg/dL Estimated GFR 45 (>60 ml/min/1.73m(2)) BUN/Creatinine Ratio 20.83 H (6-20) Glucose 150 H (78-110) mg/dL Calculated Osmolality 288.0 (267-292) mOsm/kg Calcium 9.7 (8.7-10.7) mg/dL Total Bilirubin (0.3-1.2) mg/dL AST (8-39) IU/L ALT (9-52) IU/L Alkaline Phosphatase (38-126) IU/L Total Creatine Kinase (30-136) IU/L CK-MB (CK-2) (0.00-5.00) NG/DL Troponin I 0.016 (< 0.040) ng/mL NT-Pro-B Natriuret Pep (0-125) PG/ML Total Protein (6.1-8.0) g/dL Albumin (3.5-4.8) g/dL Globulin (2.50-4.10) g/dL Albumin/Globulin Ratio (1.3-2.0) mg/g Patient Problems - Patient Problem List (1) Pulmonary hypertension Current Visit: Yes Status: Acute (2) Limited scleroderma Current Visit: Yes Status: Acute (3) Acute on chronic respiratory failure with hypoxemia Current Visit: Yes Status: Acute (4) Pulmonary edema Current Visit: Yes Status: Acute Qualifiers: Chronicity: acute Qualified Description: Acute pulmonary edema Qualifier Code(s): (J81.0) Acute pulmonary edema (5) Chest pain Current Visit: Yes Status: Acute Qualifiers: Chest pain type: other chest pain Qualified Description: Other chest pain Qualifier Code(s): (R07.89) Other chest pain, (R07.8) Other chest pain (6) Restrictive lung disease Current Visit: Yes Status: Acute (7) Depression with anxiety Current Visit: Yes Status: Acute
[2016-09-11 14:19] LABS: RHEUMATOID FACTOR <15 IU/mL (<15)
[2016-09-11 17:04] LABS: ANTI-SMOOTH MUSCLE ANTIBODY Negative (Negative); DNA DS AB <12.3 IU/mL (())
[2016-09-13 10:45] LABS: RNA POLYMERASE III AB IGG <10.0 U (())
== END 2016-09-08 14:18 | disposition short-term general hospital (02) | DRG 314 ==
LOC: ER 11:08 → MED/SURG 13:36
PROVIDERS: ADMIT Family Medicine; ATTEND Family Medicine
DX: R07.9 Chest pain, unspecified (principal); R09.02 Hypoxemia; R06.02 Shortness of breath; I27.2 Other secondary pulmonary hypertension; J96.21 Acute and chronic respiratory failure with hypoxia; J81.1 Chronic pulmonary edema; M34.9 Systemic sclerosis, unspecified; F41.8 Other specified anxiety disorders
CPT/HCPCS: 36415; 71020; 80053; 82553; 83880; 84484; 85025; 85379; 93005; 93010; 94640; 99285 ×2; J7620; 36600; 71275; 80048; 82550; 82803; 86225; 86235; 86255; 86431; 87804; 94761; J1650; J1940; J7030

== ENCOUNTER → 2016-11-06 | Outpatient (CLI) | payer OTHER ==
[2016-11-06 14:37] LABS: BASOPHILS # (AUTO) 0.04 10*3/UL; BASOPHILS % (AUTO) 0.4 % (0-1); EOSINOPHILS # (AUTO) 0.11 10*3/UL; EOSINOPHILS % (AUTO) 1.1 % (0-8); HEMATOCRIT 39.5 % (37.0-47.0); HEMOGLOBIN 12.4 g/dL (12.0-16.0); LYMPHOCYTES # (AUTO) 1.66 10*3/uL; MEAN CORPUSCULAR HEMOGLOBIN 28.2 PG (27-31); MEAN CORPUSCULAR HGB CONC 31.4 g/dL (33-37); MEAN CORPUSCULAR VOLUME 89.8 FL (81-99); MEAN PLATELET VOLUME 9.9 FL (7.4-12.2); MONOCYTES # (AUTO) 0.96 10*3/UL (0.3-0.8); MONOCYTES % (AUTO) 9.9 % (5-15); NEUTROPHILS # (AUTO) 6.91 10*3/UL; NEUTROPHILS % (AUTO) 71.1 % (50-80)
[2016-11-06 14:40] LABS: PLATELET MORPHOLOGY COMMENT NORMAL MORPHOLOGY (NORM); RBC MORPHOLOGY COMMENT NORMAL MORPHOLOGY (NORM); WBC MORPHOLOGY COMMENT NORMAL MORPHOLOGY (NORM)
[2016-11-06 14:50] LABS: CALCIUM 9.4 mg/dL (8.7-10.7); SERUM ALBUMIN 3.5 g/dL (3.5-4.8)
== END ==
LOC: LAB 09:45
PROVIDERS: ATTEND Physician Assistant Medical
DX: E87.5 Hyperkalemia (principal); I10 Essential (primary) hypertension; E78.5 Hyperlipidemia, unspecified; R10.84 Generalized abdominal pain; F32.9 Major depressive disorder, single episode, unspecified
CPT/HCPCS: 80053; 84443; 85025

== ENCOUNTER → 2016-11-28 | Outpatient (CLI) | payer OTHER ==
[2016-11-29 16:02] LABS: BASOPHILS # (AUTO) 0.04 10*3/UL; BASOPHILS % (AUTO) 0.4 % (0-1); EOSINOPHILS # (AUTO) 0.14 10*3/UL; EOSINOPHILS % (AUTO) 1.4 % (0-8); HEMATOCRIT 40.4 % (37.0-47.0); HEMOGLOBIN 12.6 g/dL (12.0-16.0); MEAN CORPUSCULAR HEMOGLOBIN 28.8 PG (27-31); MEAN CORPUSCULAR HGB CONC 31.2 g/dL (33-37); MEAN CORPUSCULAR VOLUME 92.2 FL (81-99); MEAN PLATELET VOLUME 10.1 FL (7.4-12.2); MONOCYTES # (AUTO) 0.96 10*3/UL (0.3-0.8); MONOCYTES % (AUTO) 9.5 % (5-15); NEUTROPHILS # (AUTO) 6.64 10*3/UL; NEUTROPHILS % (AUTO) 65.4 % (50-80); RED BLOOD COUNT 4.38 10^6/uL (4.20-5.40)
[2016-11-29 16:03] LABS: PLATELET MORPHOLOGY COMMENT NORMAL MORPHOLOGY (NORM); RBC MORPHOLOGY COMMENT NORMAL MORPHOLOGY (NORM); WBC MORPHOLOGY COMMENT NORMAL MORPHOLOGY (NORM)
== END ==
LOC: LAB 15:18
PROVIDERS: ATTEND Physician Assistant Medical
DX: M21.611 Bunion of right foot (principal); M79.671 Pain in right foot
CPT/HCPCS: 84550; 85025

== ENCOUNTER → 2017-02-06 | Outpatient (CLI) | payer OTHER ==
[2017-02-06 14:32] LABS: BASOPHILS # (AUTO) 0.03 10*3/UL; BASOPHILS % (AUTO) 0.3 % (0-1); EOSINOPHILS # (AUTO) 0.08 10*3/UL; EOSINOPHILS % (AUTO) 0.8 % (0-8); HEMATOCRIT 39.3 % (37.0-47.0); HEMOGLOBIN 12.4 g/dL (12.0-16.0); LYMPHOCYTES # (AUTO) 1.47 10*3/uL; MEAN CORPUSCULAR HEMOGLOBIN 28.1 PG (27-31); MEAN CORPUSCULAR HGB CONC 31.6 g/dL (33-37); MEAN CORPUSCULAR VOLUME 88.9 FL (81-99); MEAN PLATELET VOLUME 10.3 FL (7.4-12.2); MONOCYTES # (AUTO) 0.88 10*3/UL (0.3-0.8); MONOCYTES % (AUTO) 8.8 % (5-15); NEUTROPHILS # (AUTO) 7.47 10*3/UL; NEUTROPHILS % (AUTO) 74.8 % (50-80); RED BLOOD COUNT 4.42 10^6/uL (4.20-5.40)
[2017-02-06 14:33] LABS: PLATELET MORPHOLOGY COMMENT NORMAL MORPHOLOGY (NORM); RBC MORPHOLOGY COMMENT NORMAL MORPHOLOGY (NORM); WBC MORPHOLOGY COMMENT NORMAL MORPHOLOGY (NORM)
[2017-02-06 14:42] LABS: BUN/CREATININE RATIO 13.57 (6-20); CALCIUM 9.2 mg/dL (8.7-10.7); MAGNESIUM 1.1 mg/dL (1.6-2.4); SERUM ALBUMIN 3.8 g/dL (3.5-4.8)
== END ==
LOC: LAB 10:09
PROVIDERS: ATTEND Physician Assistant Medical
DX: I25.110 Atherosclerotic heart disease of native coronary artery with unstable angina pectoris (principal); J45.909 Unspecified asthma, uncomplicated; R53.83 Other fatigue; E87.6 Hypokalemia; I10 Essential (primary) hypertension; Z92.89 Personal history of other medical treatment
CPT/HCPCS: 36415; 80053; 82550; 83735; 85025

== ENCOUNTER → 2017-02-20 | Outpatient (CLI) | payer OTHER ==
[2017-02-20 14:39] LABS: BUN/CREATININE RATIO 11.53 (6-20); CALCIUM 9.4 mg/dL (8.7-10.7)
== END ==
LOC: LAB 10:40
PROVIDERS: ATTEND Physician Assistant Medical
DX: E87.6 Hypokalemia (principal)
CPT/HCPCS: 80048

== ENCOUNTER → 2017-03-21 | Outpatient (CLI) | payer OTHER ==
[2017-03-21 14:40] LABS: BASOPHILS # (AUTO) 0.06 10*3/UL; BASOPHILS % (AUTO) 0.6 % (0-1); HEMATOCRIT 40.2 % (37.0-47.0); HEMOGLOBIN 12.8 g/dL (12.0-16.0); MEAN CORPUSCULAR HGB CONC 31.8 g/dL (33-37); MEAN PLATELET VOLUME 10.1 FL (7.4-12.2); MONOCYTES # (AUTO) 0.95 10*3/UL (0.3-0.8); MONOCYTES % (AUTO) 9.8 % (5-15); NEUTROPHILS # (AUTO) 6.62 10*3/UL; NEUTROPHILS % (AUTO) 68.4 % (50-80); RED BLOOD COUNT 4.42 10^6/uL (4.20-5.40)
[2017-03-21 14:44] LABS: BUN/CREATININE RATIO 13.57 (6-20); MAGNESIUM 2.2 mg/dL (1.6-2.4); SERUM ALBUMIN 3.8 g/dL (3.5-4.8)
[2017-03-21 14:45] LABS: PLATELET MORPHOLOGY COMMENT NORMAL MORPHOLOGY (NORM); RBC MORPHOLOGY COMMENT NORMAL MORPHOLOGY (NORM); WBC MORPHOLOGY COMMENT NORMAL MORPHOLOGY (NORM)
== END ==
LOC: LAB 11:01
PROVIDERS: ATTEND Physician Assistant Medical
DX: E87.6 Hypokalemia (principal); D64.9 Anemia, unspecified; R79.89 Other specified abnormal findings of blood chemistry
CPT/HCPCS: 80053; 83735; 85025